=== PATIENT | male | born 1965 | race Caucasian/White ===

== ENCOUNTER 2018-06-22 18:23 | Emergency (ER) | payer OTHER ==
[2018-06-22 18:35] VITALS: BP 153/95; PULSE 81; TEMP 99.3; BMI 38.2
--- NOTE | 2018-06-22 18:36 | PDOC ---
Rapid Medical Evaluation Time Seen by Provider: 06/22/18 18:30 Medical Evaluation: Allergies Allergy/AdvReac Type Severity Reaction Status Date / Time No Known Allergies Allergy Verified 09/30/13 07:33 06/22/18 18:31 Pt c/o : left side of body with tingling pain x 3 hours, no weakness, no headache or dizziness, c/o lightheadedness getting off of train, had s/s previously x 1 year, denies dm, hx of back pain, no disc herniation Pt on brief exam: VSS, 5/5 strength Pt ordered for; none Pt to proceed to ED Discharge Disposition - Diagnosis Leg pain - Referrals - Patient Instructions - Post Discharge Activity
--- NOTE | 2018-06-22 19:43 | PDOC ---
History of Present Illness - General Chief Complaint: Pain Stated Complaint: NUMBNESS Time Seen by Provider: 06/22/18 18:30 - History of Present Illness Initial Comments: 53-year-old male without comorbidities presents for evaluation of unilateral numbness and tingling since 3 PM this afternoon. States he was getting on the train and felt tingling in his left leg and left arm. About the last week or so he's had intermittent chest pain. 06/22/18 19:38 Past History - Past Medical History Allergies/Adverse Reactions: Allergies Allergy/AdvReac Type Severity Reaction Status Date / Time No Known Allergies Allergy Verified 06/22/18 18:35 Home Medications: Ambulatory Orders Ca Cmb No.1/Vit D3/B-6/FA/B12 [Vitamin D3 1,000 Unit Tablet] 1 each PO DAILY Aspirin Coated [Ecotrin -] 162 mg PO DAILY #0 tablet.ec NS 07/30/14 Anemia: No Asthma: No (SLEEP APNEA, USES CPAP) Cancer: No Cardiac Disorders: No CVA: No COPD: No CHF: No Dementia: No Diabetes: No GI Disorders: Yes (DIVERTICULOSIS) Disorders: No HTN: No Hypercholesterolemia: No Liver Disease: Yes (FATTY LIVER) Seizures: No Thyroid Disease: No - Surgical History Abdominal Surgery: No Appendectomy: No Cardiac Surgery: No Cholecystectomy: No Lung Surgery: No Neurologic Surgery: No Orthopedic Surgery: No - Suicide/Smoking/Psychosocial Hx Smoking Status: No Smoking History: Never smoked Number of Cigarettes Smoked Daily: 0 Hx Alcohol Use: No Drug/Substance Use Hx: No Substance Use Type: None Hx Substance Use Treatment: No Review of Systems - Review of Systems Cardiac (ROS): Yes: See HPI Neurological: Yes: See HPI, Headache, Numbness, Tingling All Other Systems: Reviewed and Negative *Physical Exam - Vital Signs Last Vital Signs Temp Pulse Resp BP Pulse Ox 99.3 F 81 18 153/95 99 06/22/18 18:30 06/22/18 18:30 06/22/18 18:30 06/22/18 18:30 06/22/18 18:30 - Physical Exam Comments: HEAD: NC/AT EYES: Conjuntiva clear Ears: Canals and TM's normal NOSE: No d/c THROAT: Moist mucous membrances, oral pharanx clear, uvula midline NECK: Supple without adenopathy CARDIAC: S1 S2 LUNGS: CTA Full and Equal breath sounds ABDOMEN: Soft NT ND MS: Full ROM in all joints without edema , there is left calf and medial sided thigh tenderness. NEUROLOGIC: No gross sensory or motor deficits, NVID SKIN: Normal color and temperature no lesions or rashes 06/22/18 19:41 ED Treatment Course - RADIOLOGY Radiology Studies Ordered: Category Date Time Status DUPLEX VASCUL US-1 LEG [US] Stat Ultrasound 06/22/18 19:37 Ordered Medical Decision Making - Medical Decision Making This is a 53-year-old male without significant comorbidities presenting for unilateral left-sided numbness since 3 PM today. Differential includes DVT in the left lower extremity, as he is tender in his calf and thigh, TIA, lumbar and cervical radiculopathy. I will transfer him to the main emergency room as he requires further workup 06/22/18 19:43 *DC/Admit/Observation/Transfer Diagnosis at time of Disposition: Leg pain, Left sided numbness - Referrals Referrals: Dinora Woodruff MD [Primary Care Provider] - - Patient Instructions - Post Discharge Activity
--- NOTE | 2018-06-22 19:53 | PDOC ---
*Physical Exam - Vital Signs Last Vital Signs Temp Pulse Resp BP Pulse Ox 99.3 F 81 18 153/95 99 06/22/18 18:30 06/22/18 18:30 06/22/18 18:30 06/22/18 18:30 06/22/18 18:30 - Physical Exam General Appearance: Yes: Appropriately Dressed Respiratory/Chest: positive: Lungs Clear, Normal Breath Sounds Cardiovascular: positive: Regular Rhythm, Regular Rate Extremity: positive: Normal Capillary Refill, Normal Inspection, Normal Range of Motion Neurologic: positive: information technology associate II-XII NML intact, Fully Oriented, Alert, Normal Mood/ Affect ED Treatment Course - LABORATORY CBC & Chemistry Diagram: 06/22/18 19:50 06/22/18 19:50 Medical Decision Making - Medical Decision Making 06/22/18 21:38 patient reports feeling better. no numbness reported at this time. labs wnl, US WNL patient to follow up with Neurology. Lyme titer pending. *DC/Admit/Observation/Transfer Diagnosis at time of Disposition: Left sided numbness Leg pain Qualifiers: Laterality: left Qualified Code(s): M79.605 - Pain in left leg - Discharge Dispostion Disposition: HOME - Referrals Referrals: Dinora Woodruff MD [Primary Care Provider] - Sy Jacobson MD [Staff Physician] - Call tomorrow - Patient Instructions Printed Discharge Instructions: DI for Numbness/tingling Additional Instructions: please follow up with neurology as soon as possible.. return to the ER if symptoms worsen Additional Instructions: * Please call your personal physician to report your Emergency Department visit and to report your progress, if any. * If there is no improvement in symptoms in 2 days call your physician. * Return to the Emergency Department for any worsening symptoms. - Post Discharge Activity Forms/Work/School Notes: Back to Work
[2018-06-22 20:01] LABS: BASO % 0.4 % (0-2.0); EOS % 0.5 % (0-4.5); HEMATOCRIT 40.7 % (35.4-49); LYMPH % 13.9 % (8-40); MCH 31.7 pg (25.7-33.7); MCHC 34.4 g/dl (32.0-35.9); MEAN CELL VOLUME 92.1 fl (80-96); MONO % 6.2 % (3.8-10.2); PLATELET COUNT 171 K/MM3 (134-434); RBC 4.42 M/mm3 (4.00-5.60); RDW 14.2 % (11.9-15.9)
[2018-06-22 20:19] LABS: INR 1.05 (0.83-1.09); PROTHROMBIN TIME (PATIENT) 11.9 SEC (9.7-13.0)
[2018-06-22 20:28] LABS: ALBUMIN 3.7 g/dl (3.4-5.0); ANION GAP 10 MMOL/L (8-16); BLOOD UREA NITROGEN 15 mg/dL (7-18); CALCIUM 9.1 mg/dL (8.5-10.1); CHLORIDE 104 mmol/L (98-107); CO2 26 mmol/L (21-32); CREATININE 0.7 mg/dL (0.7-1.3); GLUCOSE,RANDOM 128 mg/dL (74-106); POTASSIUM 4.3 mmol/L (3.5-5.1); SGOT/AST 25 U/L (15-37); SGPT/ALT 38 U/L (12-78); SODIUM 140 mmol/L (136-145)
[2018-06-22 20:31] LABS: ALK PHOS 72 U/L (45-117); BILIRUBIN,TOTAL 0.5 mg/dL (0.2-1.0)
[2018-06-22 20:31] LABS: URINE APPEARANCE CLEAR; URINE BILIRUBIN NEGATIVE (<2.0 mg/dL); URINE COLOR LTYELLOW; URINE GLUCOSE (UA) NEGATIVE (NEGATIVE); URINE KETONE NEGATIVE (NEGATIVE); URINE LEUK ESTERASE NEGATIVE (NEGATIVE); URINE NITRITE NEGATIVE (NEGATIVE); URINE PROTEIN NEGATIVE (NEGATIVE); URINE UROBILINOGEN NEGATIVE mg/dL (0.2-1.0)
--- NOTE | 2018-06-23 13:44 | EKG ---
Test Reason : Blood Pressure : / mmHG Vent. Rate : 069 BPM Atrial Rate : 069 BPM P-R Int : 166 ms QRS Dur : 082 ms QT Int : 386 ms P-R-T Axes : 035 008 037 degrees QTc Int : 413 ms NORMAL SINUS RHYTHM NORMAL ECG WHEN COMPARED WITH ECG OF 10-FEB-2013 09:29, NO SIGNIFICANT CHANGE WAS FOUND Confirmed by SHELLY COSME MD ([id number]) on 06/23/2018 1:43:54 PM Referred By: Confirmed By:SHELLY COSME MD
== END 2018-06-22 22:31 | disposition home or self-care (01) ==
LOC: JER 18:23 → JERFT 18:23 → JER 22:31
DX: R20.0 Anesthesia of skin (principal); M79.662 Pain in left lower leg; M79.1 Myalgia
CPT/HCPCS: 36415; 70450-TC; 80053; 81003; 84484; 85025; 85610; 86618; 87086; 93005; 93010; 93971-TC; 99282-25

== ENCOUNTER 2021-03-23 10:41 | Emergency (ER) | payer BC, OTHER ==
[2021-03-23 10:49] VITALS: BP 120/77; PULSE 79; TEMP 100.5; BMI 34.9
[2021-03-23] MEDS ORDERED: ACETAMINOPHEN 325 MG TABLET (FP) PO ONE (10:54)
[2021-03-23] MEDS ORDERED: ACETAMINOPHEN 325 MG TABLET (FP) ONE (11:25)
[2021-03-23 12:15] LABS: EPI CELLS 14 /uL (0-25.1); HYALINE CASTS 1 /uL (0-3.1); PH,URINE 8.5 (5.0-8.0); URINE APPEARANCE CLEAR; URINE BACTERIA 18 /uL (0-1359); URINE BILIRUBIN NEGATIVE (NEGATIVE); URINE COLOR DK YELLOW; URINE GLUCOSE (UA) NEGATIVE (NEGATIVE); URINE KETONE 1+ (NEGATIVE); URINE LEUK ESTERASE 1+ (NEGATIVE); URINE NITRITE NEGATIVE (NEGATIVE); URINE PROTEIN TRACE (NEGATIVE); URINE RBC 16 /uL (0-23.9); URINE WBC 57 /uL (0-25.8)
== END 2021-03-23 12:52 | disposition home or self-care (01) ==
LOC: JERFT 10:41 → JER 10:41 → JERFT 12:52
DX: N30.00 Acute cystitis without hematuria (principal)
CPT/HCPCS: 81003; 87086; 99284-25